=== PATIENT | female | born 1985 | race African-American/Black ===

== ENCOUNTER → 2016-09-15 | Outpatient (CLI) | payer BC ==
[~2016-09-15] MED LIST: ALBU1AER9 INH; OMEP40CA PO
--- NOTE | 2016-09-15 11:24 | HISTORY & PHYSICAL EXAMINATION ---
DATE OF ADMISSION: 09/15/2016 PREOPERATIVE DIAGNOSIS: Infertility. POSTOPERATIVE DIAGNOSIS: Same. SURGEON: Dr. Mart Mchugh. RADIOLOGIST: Dr. Arteaga. INDICATIONS OF PROCEDURE: The patient is a 31-year-old black, , nulliparous female with longstanding infertility, known polycystic ovary syndrome with ovulatory dysfunction. PROCEDURE: The patient was taken to the radiology suite, placed on the radiology table. A single-sided Graves' speculum was introduced. The cervix was cleansed with Betadine. A single tooth tenaculum was placed. The internal os was dilated to a 6-Dutch. An insemination catheter with a rubber stopper long tube with 20 mL of water base radiopaque dye was attached to the single tooth tenaculum. The speculum was removed. Approximately 5 mL of fluid was instilled. Both tubes filled and spilled almost instantly. Air bubbles introduced into the cavity were proven to be such by repositioning the patient. ESTIMATED BLOOD LOSS: None. COMPLICATIONS: None. The patient tolerated the procedure well.
--- NOTE | 2016-09-15 11:32 | DIAGNOSTIC IMAGING REPORT ---
HYSTEROSALPINGOGRAM HISTORY: Infertility. FLUOROSCOPY TIME: 0.7 minutes. TECHNIQUE: The cervix was cannulated by the sanitarian inspector-project manager process development and water soluble contrast was instilled into the uterus under fluoroscopic guidance. Multiple spot images were obtained. FINDINGS: The uterine cavity is normal in size, shape, and position. The fallopian tubes are patent and there is free peritoneal spill bilaterally. IMPRESSION: Normal hysterosalpingogram. Electronically signed by: Cooper Arteaga M.D. 09/15/2016 11:30 AM Dictated Date/Time: 09/15/2016 11:30 AM
== END | disposition home or self-care (01) ==
LOC: C.RAD 10:19
PROVIDERS: ATTEND Obstetrics & Gynecology
DX: Z31.41 Encounter for fertility testing (principal)

== ENCOUNTER → 2016-09-22 | Outpatient (CLI) | payer BC | END | disposition home or self-care (01) | LOC: C.LAB 09:13 | PROVIDERS: ATTEND Obstetrics & Gynecology | DX: N97.0 Female infertility associated with anovulation (principal) ==

== ENCOUNTER → 2016-10-21 | Outpatient (CLI) | payer BC ==
[2016-10-21 09:38] LABS: SEMEN VOLUME 3.8 ML
== END | disposition home or self-care (01) ==
LOC: C.LAB 09:23
PROVIDERS: ATTEND Obstetrics & Gynecology
DX: N97.0 Female infertility associated with anovulation (principal)

== ENCOUNTER → 2016-12-28 | Outpatient (CLI) | payer BC ==
[2016-12-28 17:35] LABS: PREG INTERNAL NEGATIVE QC NEG CLEAR BACKGROUND; PREG INTERNAL POSITIVE QC POS CONTROL LINE
== END | disposition home or self-care (01) ==
LOC: C.LAB1850 15:03
PROVIDERS: ATTEND Obstetrics & Gynecology
DX: N91.2 Amenorrhea, unspecified (principal)

== ENCOUNTER → 2017-02-16 | Outpatient (CLI) | payer BC ==
[2017-02-16 17:43] LABS: HEMATOCRIT 37.3 % (37-47); MEAN CELL VOLUME 79.5 fL (80-100); MEAN CORPUSCULAR HEMOGLOBIN 25.4 pg (25-34); MEAN CORPUSCULAR HGB CONC 31.9 g/dl (32-36); MEAN PLATELET VOLUME 8.5 fL (7.4-10.4); PLATELET COUNT 448 K/uL (130-400); RED BLOOD COUNT 4.69 M/uL (4.2-5.4); WHITE BLOOD COUNT 6.32 K/uL (4.8-10.8)
[2017-02-16 17:55] LABS: INR 1.1 (0.9-1.1); PROTHROMBIN TIME (PATIENT) 11.4 SECONDS (9.0-12.0)
[2017-02-16 18:28] LABS: RUBELLA SCREEN IgG (AT CCH) IMMUNE (IMMUNE)
--- NOTE | 2017-02-21 14:17 | CODING QUERY MEDICAL NECESSITY ---
SUPPORTING DIAGNOSIS NEEDED Dr. Da Silva, A supporting diagnosis is required for the test/procedure performed on this patient in order for us to be reimbursed by the patient's insurance. Please provide a supporting diagnosis for the following test/procedure listed below next to the test name along with your signature. *If there is no additional diagnosis for this patient that would support the following test/procedure please document that below next to the test/procedure. Test(s)/Procedure(s) that require a supporting diagnosis: * ([id number]) VITAMIN D ASSAY DIAGNOSIS: DATE OF SERVICE: 02/16/17 Provider Signature: Date: Thank you Taqueria Alfonso [facility] Information Management Once completed, please kindly fax back to [phone] For questions please call [phone]
[2017-02-21 20:12] LABS: B2 GLYCOPROTEIN IGA <9 SAU (<=20); B2 GLYCOPROTEIN IGG <9 SGU (<=20); B2 GLYCOPROTEIN IGM <9 SMU (<=20); HCT 37.8 % (35.0-45.0); HEMOGLOBIN A2 2.3 % (1.8-3.5); HGB 12.1 g/dL (11.7-15.5); LUPUS ANTICOAGULANT** TC36573X Negative (Negative); MCH 25.5 pg (27.0-33.0); MCV 79.7 FL (80.0-100.0); RBC 4.74 Mill/uL (3.80-5.10); RDW 15.1 % (11.0-15.0)
== END | disposition home or self-care (01) ==
LOC: C.LAB1850 16:59
PROVIDERS: ATTEND Specialist
DX: Z01.83 Encounter for blood typing (principal); Z31.41 Encounter for fertility testing; Z11.9 Encounter for screening for infectious and parasitic diseases, unspecified; Z11.3 Encounter for screening for infections with a predominantly sexual mode of transmission; Z11.4 Encounter for screening for human immunodeficiency virus [HIV]; E28.2 Polycystic ovarian syndrome; N96 Recurrent pregnancy loss; Z13.0 Encounter for screening for diseases of the blood and blood-forming organs and certain disorders involving the immune mechanism; Z13.21 Encounter for screening for nutritional disorder

== ENCOUNTER → 2017-02-17 | Outpatient (CLI) | payer BC | END | disposition home or self-care (01) | LOC: C.LAB1850 07:40 | PROVIDERS: ATTEND Specialist | DX: N96 Recurrent pregnancy loss (principal) ==

== ENCOUNTER → 2017-03-01 | Outpatient (CLI) | payer BC | END | disposition home or self-care (01) | LOC: C.LAB1850 11:29 | PROVIDERS: ATTEND Specialist | DX: Z31.41 Encounter for fertility testing (principal) ==

== ENCOUNTER → 2017-03-02 | Outpatient (CLI) | payer BC ==
[2017-03-02 08:13] LABS: ESTIMATED AVERAGE GLUCOSE 117 mg/dl; HA1C FLAG Normal (Normal)
[2017-03-02 08:17] LABS: BLOOD UREA NITROGEN 9 mg/dl (7-18); CREATININE 0.83 mg/dl (0.60-1.20); GLUCOSE,FASTING 94 mg/dl (70-99)
[2017-03-02 08:22] LABS: ALKALINE PHOSPHATASE 49 U/L (45-117); ALT/SGPT 19 U/L (12-78); AST/SGOT 16 U/L (15-37)
== END | disposition home or self-care (01) ==
LOC: C.LAB1850 07:21
PROVIDERS: ATTEND Specialist
DX: E28.2 Polycystic ovarian syndrome (principal)

== ENCOUNTER → 2017-03-28 | Outpatient (CLI) | payer BC | END | disposition home or self-care (01) | LOC: C.LAB1850 16:26 | PROVIDERS: ATTEND Specialist | DX: Z31.430 Encounter of female for testing for genetic disease carrier status for procreative management (principal) ==

== ENCOUNTER → 2017-04-28 | Outpatient (CLI) | payer BC | END | disposition home or self-care (01) | LOC: C.LAB 07:17 | PROVIDERS: ATTEND Specialist | DX: O09.00 Supervision of pregnancy with history of infertility, unspecified trimester (principal) ==

== ENCOUNTER → 2017-05-04 | Outpatient (CLI) | payer BC | END | disposition home or self-care (01) | LOC: C.LAB 07:44 | PROVIDERS: ATTEND Specialist | DX: Z31.41 Encounter for fertility testing (principal) ==

== ENCOUNTER → 2017-05-09 | Outpatient (CLI) | payer BC | END | disposition home or self-care (01) | LOC: C.LAB 07:50 | PROVIDERS: ATTEND Specialist | DX: Z31.41 Encounter for fertility testing (principal) ==

== ENCOUNTER → 2017-05-26 | Outpatient (CLI) | payer BC | END | disposition home or self-care (01) | LOC: C.LAB 07:26 | PROVIDERS: ATTEND Specialist | DX: O09.00 Supervision of pregnancy with history of infertility, unspecified trimester (principal) ==

== ENCOUNTER → 2017-06-24 | Outpatient (CLI) | payer BC | END | disposition home or self-care (01) | LOC: C.LAB 07:48 | PROVIDERS: ATTEND Specialist | DX: Z31.41 Encounter for fertility testing (principal) ==

== ENCOUNTER → 2017-07-09 | Outpatient (CLI) | payer BC | END | disposition home or self-care (01) | LOC: C.LAB 07:28 | PROVIDERS: ATTEND Specialist | DX: O09.00 Supervision of pregnancy with history of infertility, unspecified trimester (principal) ==

== ENCOUNTER → 2017-07-18 | Outpatient (CLI) | payer BC | END | disposition home or self-care (01) | LOC: C.LAB 07:34 | PROVIDERS: ATTEND Specialist | DX: Z31.41 Encounter for fertility testing (principal) ==

== ENCOUNTER → 2017-08-12 | Outpatient (CLI) | payer BC | END | disposition home or self-care (01) | LOC: C.LAB 07:17 | PROVIDERS: ATTEND Specialist | DX: Z31.41 Encounter for fertility testing (principal) ==